=== PATIENT | male | born 1990 | race Two or more races ===

== ENCOUNTER 2016-09-14 20:29 | Emergency (ER) | payer MEDICAID, OTHER ==
[2016-09-14 20:36] VITALS: BMI 27.7
[2016-09-14 20:37] VITALS: TEMP 98.6; O2SAT 99
[2016-09-14 21:44] LABS: URINE BILIRUBIN NEGATIVE (NEGATIVE); URINE BLOOD NEGATIVE (NEGATIVE); URINE GLUCOSE (UA) NEGATIVE (NEGATIVE); URINE KETONE NEGATIVE (NEGATIVE); URINE LEUKOCYTE ESTERASE NEGATIVE Leu/uL (NEGATIVE); URINE PROTEIN NEGATIVE mg/dL (<30 mg/dL); URINE UROBILINOGEN 0.2 E.U./dL (<1 E.U./dL)
[2016-09-14 21:49] LABS: URINE APPEARANCE CLEAR (CLEAR); URINE COLOR YELLOW (YELLOW)
--- NOTE | 2016-09-14 22:06 | US ---
EXAM: US Scrotum CLINICAL HISTORY: 26 years old, male; Pain; Scrotum pain; Additional info: Right sided testicular pain TECHNIQUE: Real-time ultrasound of the scrotum with color Doppler and image documentation. EXAM DATE/TIME: 09/14/2016 9:15 PM COMPARISON: There are no prior studies for comparison. FINDINGS: Right: Right epididymal head measures approximately 9 x 7 mm.. Right testicle measures approximately 4.08 x 1.86 x 2.64 cm. There is expected intratesticular blood flow. There are no testicular masses. Left: Left epididymal head measures approximately 8 x 7 mm. Left testicle measures approximately 3.96 x 1.87 x 2.71 cm. There is expected intratesticular blood flow. There are no testicular masses. IMPRESSION: No torsion
--- NOTE | 2016-09-14 22:37 | ED PDOC ---
Arrival/HPI - General Historian: Patient - History of Present Illness Time/Duration: > month Symptom Onset: Gradual Symptom Course: Intermittent Quality: Stabbing Severity Level: 2 - General Chief Complaint: Male Genitourinary Time Seen by Provider: 09/14/16 21:14 - History of Present Illness Narrative History of Present Illness (Text): 09/14/16 22:41 26yr old male presents today with a 2 month history of intermittent right sided back pain and right sided testicular pain. pt denies any pain at present time. pt states he took abx for 3 days. denies dysuria. denies urinary frequency. denies hematuria. pt states intermittently he will get a sharp pain to the right testicle and occasionally pain to the right flank. pt states the pain does not radiate from the back to the groin. pt denies abdominal pain. denies being sexually active. denies penile discharge. no fever/chills. no other complaints. (Ramona Henao) Past Medical History - Provider Review Nursing Documentation Reviewed: Yes - Travel History Have you recently traveled outside [place] w/in the past 3 mons?: Yes If Yes, travel location?: [place] - Infectious Disease Hx of Infectious Diseases: None - Psychiatric Hx Substance Use: No - Anesthesia Hx Anesthesia: No Family/Social History - Physician Review Nursing Documentation Reviewed: Yes Family/Social History: Unknown Family HX Smoking Status: Never Smoked Hx Alcohol Use: Yes Frequency of alcohol use: Socially Hx Substance Use: No Allergies/Home Meds Allergies/Adverse Reactions: Allergies No Known Allergies Allergy (Verified 09/14/16 20:33) Review of Systems - Review of Systems Constitutional: absent: Fatigue, Fevers Respiratory: absent: SOB, Cough Cardiovascular: absent: Chest Pain, Palpitations Gastrointestinal: absent: Abdominal Pain, Constipation, Diarrhea, Nausea, Vomiting Genitourinary Male: Other (right sided testicular pain). absent: Dysuria, Frequency, Urinary Output Changes Musculoskeletal: Back Pain. absent: Arthralgias, Neck Pain Skin: absent: Rash, Pruritis Neurological: absent: Headache, Dizziness Psychiatric: absent: Anxiety, Depression Physical Exam Vital Signs Reviewed: Yes Temperature: Afebrile Blood Pressure: Hypertensive Pulse: Regular Respiratory Rate: Normal Appearance: Positive for: Well-Appearing, Non-Toxic, Comfortable Pain Distress: None Mental Status: Positive for: Alert and Oriented X 3 - Systems Exam Head: Present: Atraumatic Mouth: Present: Moist Mucous Membranes Neck: Present: Normal Range of Motion Respiratory/Chest: Present: Clear to Auscultation, Good Air Exchange. No: Respiratory Distress, Accessory Muscle Use Cardiovascular: Present: Regular Rate and Rhythm, Normal S1, S2. No: Murmurs Abdomen: Present: Normal Bowel Sounds. No: Tenderness, Distention, Peritoneal Signs Genitourinary Male: Present: Normal External Genitalia, Other (chaparoned by manjit ER EMT). No: Lesions, Penile Discharge, Testicle Tenderness, Penile Swelling, Masses, Erythema, Hernias, Testicle Swelling Back: Present: Normal Inspection. No: CVA Tenderness, Midline Tenderness, Paraspinal Tenderness Upper Extremity: Present: Normal Inspection Neurological: Present: GCS=15, Speech Normal Skin: Present: Warm, Dry, Normal Color. No: Rashes Psychiatric: Present: Alert, Oriented x 3 Medical Decision Making ED Course and Treatment: 09/14/16 22:34 26 yr old male with 2 month history of intermittent right testicular pain and right back pain. abdomen soft non tender, non distended. UA; WNL Testicular US; FINDINGS: Right: Right epididymal head measures approximately 9 x 7 mm.. Right testicle measures approximately 4.08 x 1.86 x 2.64 cm. There is expected intratesticular blood flow. There are no testicular masses. Left: Left epididymal head measures approximately 8 x 7 mm. Left testicle measures approximately 3.96 x 1.87 x 2.71 cm. There is expected intratesticular blood flow. There are no testicular masses. IMPRESSION: No torsion GC/Chlamydia cultures pending; pt non toxic well appearing; no distress. no testicular pain or back pain at present time. I have discussed the results in depth with the patient.I have advised the patient of elevated blood pressure and the need for follow-up with the clinic for repeat blood pressure testing. I've advised follow-up with the urologist for his intermittent testicular pain. I've advised immediate return if symptoms worsen persist or if new concerning symptoms develop Patient verbalizes understanding of discharge instructions and need for immediate followup. all aspects of this case were discussed the attending of record. impression; testicular pain motrin every 6 hours as needed for pain follow up with the primary care physician within the next 2 days follow up with the Urologist within the next 2 days return if symptoms worsen, persist or if new symptoms develop. (Ramona Henao) - Lab Interpretations Lab Results: Lab Results 09/14/16 21:32: Urine Color Yellow, Urine Appearance Clear, Urine pH 6.0, Ur Specific [place] 1.015, Urine Protein Negative, Urine Glucose (UA) Negative, Urine Ketones Negative, Urine Blood Negative, Urine Nitrate Negative, Urine Bilirubin Negative, Urine Urobilinogen 0.2, Ur Leukocyte Esterase Negative - RAD Interpretation Radiology Orders: 09/14/16 21:15 TESTES DUPLEX COMPLETE [US] Stat Disposition/Present on Arrival - Present on Arrival Any Indicators Present on Arrival: No History of DVT/PE: No History of Uncontrolled Diabetes: No Urinary Catheter: No History of Decub. Ulcer: No History Surgical Site Infection Following: None - Disposition Have Diagnosis and Disposition been Completed?: Yes Disposition Time: 22:34 Patient Plan: Discharge - Disposition Diagnosis: Testicular pain Disposition: HOME/ ROUTINE Condition: GOOD Discharge Instructions (ExitCare): Testicle Pain (ED) Additional Instructions: motrin every 6 hours as needed for pain follow up with the primary care physician within the next 2 days follow up with the Urologist within the next 2 days return if symptoms worsen, persist or if new symptoms develop. Prescriptions: Ibuprofen [Motrin] 600 mg PO Q6H PRN #20 tab PRN Reason: pain/fever reduction Referrals: Frankie Roth MD [Staff Provider] - Follow up with primary [facility] [place] - Follow up with primary Forms: WORK NOTE
[2016-09-14 23:39] VITALS: BP 152/80; PULSE 90; RESP 16
== END 2016-09-14 22:38 | disposition home or self-care (01) ==
LOC: ED 20:29
DX: N50.811 Right testicular pain (principal)